=== PATIENT | male | born 1965 | race Caucasian/White ===

== ENCOUNTER 2022-11-12 23:09 | Emergency (ER) | payer SELFPAY ==
[2022-11-12] MEDS ORDERED: Sodium Chloride 0.9% 10 ML Syringe FLUSH PRN (23:32)
[2022-11-12 23:41] LABS: BASOPHILS PERCENT AUTO 0.6 % (0.0-1.0); EOSINOPHILS ABSOLUTE AUTO 0.3 K/mm3 (0.0-0.4); EOSINOPHILS PERCENT AUTO 4.4 % (0.0-6.0); HEMATOCRIT 42.7 % (42.0-52.0); HEMOGLOBIN 13.7 gm/dl (14.0-18.0); IMMATURE GRAN ABSOLUTE AUTO 0.06 K/mm3 (0.00-0.05); IMMATURE GRAN PERCENT AUTO 0.9 % (0.0-0.4); LYMPHOCYTES ABSOLUTE AUTO 1.5 K/mm3 (1.0-4.8); LYMPHOCYTES PERCENT AUTO 22.4 % (24.0-44.0); MEAN CORPUSCULAR HEMOGLOBIN 27.1 pg (28.0-32.0); MEAN CORPUSCULAR HGB CONC 32.1 g/dl (32.0-36.0); MEAN CORPUSCULAR VOLUME 84.4 fl (83.0-99.0); MEAN PLATELET VOLUME 9.8 fl (9.4-12.4); MONOCYTES ABSOLUTE AUTO 0.5 K/mm3 (0.0-0.8); MONOCYTES PERCENT AUTO 7.8 % (0.0-8.0); NEUTROPHILS ABSOLUTE AUTO 4.2 K/mm3 (1.8-7.7); NEUTROPHILS PERCENT AUTO 63.9 % (41.0-71.0); PLATELET COUNT,PLT 246 K/mm3 (150-400); RED BLOOD CELL COUNT 5.06 M/mm3 (4.52-5.90); WHITE BLOOD CELL COUNT,WBC 6.55 K/mm3 (3.9-11.3)
[2022-11-13 00:04] LABS: D-DIMER QUANTITATIVE < 0.19 mg/L (0.19-0.50); INR < 0.93; PROTHROMBIN TIME 9.8 SECONDS (9.7-12.0)
[2022-11-13 00:14] LABS: ALBUMIN 3.6 g/dl (3.4-5.0); ANION GAP 13.2 (5-15); BILIRUBIN TOTAL 0.2 mg/dL (0.2-1.0); EST CRCL DRUG DOSING (CG) 75.28 mL/min; POTASSIUM,K 4.2 mEq/L (3.5-5.1); PROTEIN TOTAL,TP 7.3 g/dl (6.4-8.2)
[2022-11-13] MEDS ORDERED: amLODIPine 5 MG Tab PO ONE (04:06)
== END 2022-11-13 05:50 ==
LOC: JD.ED 23:09
DX: I10 Essential (primary) hypertension (principal); Z79.899 Other long term (current) drug therapy
CPT/HCPCS: 36415; 70450; 71045; 80053; 83735; 83880; 84484; 85025; 85379; 85610; 93005; 99284; A9270; J3490; 93010

== ENCOUNTER 2023-09-12 21:18 | Emergency (ER) | payer MEDICAID | END 2023-09-12 23:13 | LOC: JD.ED 21:18 | DX: S93.401A Sprain of unspecified ligament of right ankle, initial encounter (principal); I10 Essential (primary) hypertension; E78.00 Pure hypercholesterolemia, unspecified; E03.9 Hypothyroidism, unspecified; Z79.899 Other long term (current) drug therapy; W11.XXXA Fall on and from ladder, initial encounter | CPT/HCPCS: 73610-26-RT; 73610-RT; 99283 ==